=== PATIENT | male | born 1980 | race Caucasian/White ===

== ENCOUNTER → 2023-07-30 15:56 | Outpatient (REF) | payer BC, SELFPAY | LOC: RAD 15:56 | PROVIDERS: ATTENDING PHYSICIAN Physician Assistant Medical | DX: M25.522 Pain in left elbow (principal) | CPT/HCPCS: 73080 ==

== ENCOUNTER → 2024-04-15 13:31 | Outpatient (REF) | payer BC, SELFPAY | LOC: RAD 13:31 | PROVIDERS: ATTENDING PHYSICIAN Orthopaedic Surgery; FAMILY PHYSICIAN Physician Assistant Medical | DX: S05.50XA Penetrating wound with foreign body of unspecified eyeball, initial encounter (principal) | CPT/HCPCS: 70030 ==

== ENCOUNTER → 2024-04-24 13:00 | Outpatient (REF) | payer BC, SELFPAY | LOC: EMG 13:00 | PROVIDERS: ATTENDING PHYSICIAN Orthopaedic Surgery; FAMILY PHYSICIAN Physician Assistant Medical | DX: R20.0 Anesthesia of skin (principal) | CPT/HCPCS: 95886; 95909 ==